=== PATIENT | male | born 1945 | race Caucasian/White ===

== ENCOUNTER → 2019-02-26 | Outpatient (CLI) | payer MEDICARE, OTHER ==
[~2019-02-26] MED LIST: PERCOCET 5-3251 EACH PO; ZOCOR; ZOFRAN ODT4 MG PO; ZYRTEC
--- NOTE | 2019-02-26 12:42 | 2DMMODE ---
[place] [address] 2 D/M-MODE ECHOCARDIOGRAM Name: SOM NAIR Room: [facility]#: [id number] Admission: 02/26/19 Attend Phys: Bronson Sandoval, Discharge: Date of : 49 Date of Service: 02/26/19 1242 Report #: [id number] THIS REPORT FOR: //name// APPROVED REPORT Study performed: 02/26/2019 10:07:41 EXAM: Comprehensive 2D, Doppler, and color-flow Echocardiogram Patient Location: Out-Patient BSA: 2.00 HR: 66 bpm BP: 138/82 mmHg Other Information Study Quality: Good Indications Mitral Valve disorder 2D Dimensions IVSd: 12.92 (7-11mm) LVOT Diam: 20.04 (18-24mm) LVDd: 44.46 mm PWd: 11.31 (7-11mm) Ascending Ao: 31.04 (22-36mm) LVDs: 31.20 (25-40mm) Aortic Root: 27.97 mm Volumes Left Atrial Volume (Systole) LA ESV Index: 20.30 mL/m2 Aortic Valve AoV Peak Abiodun.: 1.12 m/s AO Peak Gr.: 5.06 mmHg LVOT Max P.36 mmHg AO Mean Gr.: 2.89 mmHg LVOT Mean P.14 mmHg LVOT Max V: 0.77 m/s AO V2 VTI: 24.50 cm LVOT Mean V: 0.49 m/s [place] (VTI): 2.21 cm2 LVOT V1 VTI: 17.16 cm Mitral Valve E/A Ratio: 0.74 MV Decel. Time: 254.85 ms MV E Max Abiodun.: 0.58 m/s MV PHT: 73.91 ms MVA (PHT): 2.98 [place]2 [place] [address] 2 D/M-MODE ECHOCARDIOGRAM Name: SOM NAIR Room: [facility]#: [id number] Admission: 02/26/19 Attend Phys: Bronson Sandoval, Discharge: Date of : 49 Date of Service: 02/26/19 1242 Report #: [id number] TDI E/Lateral E': 5.80 E/Medial E': 8.29 Medial E' Abiodun.: 0.07 m/s Lateral E' Abiodun.: 0.10 m/s Pulmonary Valve PV Peak Abiodun.: 0.99 m/s PV Peak Gr.: 3.94 mmHg Tricuspid Valve RAP Estimate: 5.00 mmHg TR Peak Gr.: 26.98 mmHg RVSP: 31.98 mmHg PA Pressure: 31.98 mmHg Left Ventricle The left ventricle is normal size. There is normal LV segmental wall motion. Mild concentric left ventricular hypertrophy. Left ventricular systolic function is normal. The left ventricular ejection fraction is within the normal range. LVEF is 55-60%. Grade I - abnormal relaxation pattern. Right Ventricle The right ventricle is normal size. The right ventricular systolic function is normal. Atria The left atrium size is normal. The right atrium size is normal. Aortic Valve The aortic valve is normal in structure. No aortic regurgitation is present. There is no aortic valvular stenosis. Mitral Valve The mitral valve is normal in structure. Trace mitral regurgitation. No evidence of mitral valve stenosis. There is mild mitral valve prolapse. Tricuspid Valve The tricuspid valve is normal in structure. Mild tricuspid regurgitation. estimated pa pressure 30 mm hg Pulmonic Valve Pulmonic valve is not well visualized. There is no pulmonic [place] [address] 2 D/M-MODE ECHOCARDIOGRAM Name: SOM NAIR Room: [facility]#: [id number] Admission: 02/26/19 Attend Phys: Bronson Sandoval, Discharge: Date of : 49 Date of Service: 02/26/19 1242 Report #: [id number] Great Vessels The aortic root is normal in size. IVC is normal in size and collapses >50% with inspiration. Pericardium There is no pericardial effusion. <Conclusion> Mild concentric left ventricular hypertrophy. LVEF is 55-60%. <ELECTRONICALLY SIGNED> By: Constantino Millan MD, FACC 02/26/19 [phone] Constantino Millan MD, FACC /INF
== END ==
LOC: M.CRD 10:00
DX: I08.1 Rheumatic disorders of both mitral and tricuspid valves (principal)